=== PATIENT | male | born 1965 | race Two or more races ===

== ENCOUNTER 2020-08-10 18:46 | Emergency (ER) | payer SELFPAY ==
--- NOTE | 2020-08-10 19:23 | EDM.PDOC ---
ED HPI GENERAL MEDICAL PROBLEM - General Chief Complaint: General Stated Complaint: PAIN IN LUNGS WHEN TAKING DEEP BREATH Time Seen by Provider: 08/10/20 19:13 Source of Information: Reports: Patient History Limitations: Reports: No Limitations - History of Present Illness INITIAL COMMENTS - FREE TEXT/NARRATIVE: 55-year-old male of [place] descent presents to the ED for evaluation of upper back pain worsened by deep inspiration. Mild associated nonproductive cough. Headache. Low-grade fever. No chills. Appetite remains fair without any diarrhea. He has lost his sense of taste. Reports he was exposed to COVID- 19 in the workplace by a coworker over the last week. He has had a previous COVID-19 test 2 months ago which was negative. He states it hurts to take in a deep breath. No hemoptysis. Onset: Gradual Onset Date: 08/08/20 Duration: Day(s):, Getting Worse Location: Reports: Chest (Increased pain with deep inspiration right posterior thorax.), Generalized (Generalized fatigue weakness mild headache), Other (Loss of taste.). Denies: Abdomen, Back, Pelvis, Upper Extremity, Right, Lower Extremity, Left Quality: Reports: Ache, Other (Pleuritic type pain with sharp stabbing pain with deep inspiration right upper posterior chest) Severity: Moderate Improves with: Reports: Rest Worsens with: Reports: Other Context: Reports: Sick Contact. Denies: Activity, Exercise, Lifting, Trauma (Coworker tested positive for COVID-19 last week.), Other Associated Symptoms: Reports: Chest Pain, Cough, Fever/Chills, Headaches, Loss of Appetite, Malaise, Shortness of Breath, Weakness. 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) (.) Middle Posterior Back Pain Score (Numeric/FACES): 10 - Related Data Allergies Allergy/AdvReac Type Severity Reaction Status Date / Time dust Allergy Cough Uncoded 08/10/20 19:00 Home Meds: Home Meds Enalapril [Vasotec] 10 mg PO DAILY 08/10/20 [History] Hydrocodone/Acetaminophen [[place] 5-325 Tablet] 1 each PO Q4H #20 tablet 08/10/20 [Rx] Past Medical History Cardiovascular History: Reports: Hypertension Social & Family History - Tobacco Use Smoking Status *Q: Never Smoker - Caffeine Use Caffeine Use: Reports: Coffee - Recreational Drug Use Recreational Drug Use: No - Living Situation & Occupation Occupation: Employed ED ROS GENERAL - Review of Systems Review Of Systems: See Below Constitutional: Reports: Malaise, Weakness, Fatigue, Other (Also sense of taste.). Denies: Fever, Chills, Decreased Appetite, Weight Loss HEENT: Reports: No Symptoms Respiratory: Reports: Pleuritic Chest Pain (Every breath hurts right upper anterior back.), Cough Cardiovascular: Denies: Chest Pain, Blood Pressure Problem, Claudication, Dyspnea on Exertion, Edema, Lightheadedness, Orthopnea, Palpitations Endocrine: Reports: Fatigue GI/Abdominal: Reports: No Symptoms. Denies: Diarrhea, Nausea : Reports: No Symptoms Musculoskeletal: Reports: No Symptoms Skin: Reports: No Symptoms Neurological: Reports: No Symptoms Psychiatric: Reports: No Symptoms Hematologic/Lymphatic: Reports: No Symptoms Immunologic: Reports: No Symptoms ED EXAM, GENERAL - Physical Exam Exam: See Below General Appearance: Alert, WD/WN, No Apparent Distress, Other (Temp is heart rate was 77 and sinus. Respiratory is 19 with O2 sats of 97% room air.. BP 1 3384. 36.6) Eye Exam: Bilateral Eye: Normal Inspection, PERRL Ears: Normal TMs Throat/Mouth: Normal Inspection, Normal Lips, Normal Teeth, Normal Oropharynx, Other (Tongue is moist.) Head: Atraumatic, Normocephalic Neck: Normal Inspection, Supple, Non-Tender, Full Range of Motion. No: Carotid Bruit, Lymphadenopathy (L), Lymphadenopathy (R) Respiratory/Chest: No Respiratory Distress, Lungs Clear, Normal Breath Sounds, No Accessory Muscle Use Cardiovascular: Normal Peripheral Pulses, Regular Rate, Rhythm, No Edema, No Gallop, No Murmur, No Rub Peripheral Pulses: 3+: Carotid (L), Carotid (R), Posterior Tibial (L), Posterior Tibial (R), Dorsalis Pedis (L), Dorsalis Pedis (R) GI/Abdominal: Normal Bowel Sounds, Soft, Non-Tender, No Organomegaly, No Distention, No Mass, Pelvis Stable, Other (Previous scar from appendectomy.) Back Exam: Normal Inspection, Full Range of Motion, Paraspinal Tenderness (He has localized paraspinal tenderness over right rib head thoracic 7 or 8. This causes significant pain with palpation.). No: CVA Tenderness (L), CVA Tenderness (R) Extremities: Normal Inspection, Normal Range of Motion, Non-Tender, No Pedal Edema ( No other paraspinal muscle spasm appreciated.), Normal Capillary Refill Neurological: Alert, Oriented, CN II-XII Intact, Normal Cognition Psychiatric: Normal Affect, Normal Mood Skin Exam: Warm, Dry, Intact, Normal Color, No Rash Course - Vital Signs Last Recorded V/S: Last Vital Signs Temp 36.6 C 08/10/20 18:57 Pulse 77 08/10/20 18:57 Resp 19 08/10/20 18:57 BP 138/84 08/10/20 18:57 Pulse Ox 97 08/10/20 18:57 - Orders/Labs/Meds Orders: Active Orders 24 hr Category Date Time Status Chest 1V Frontal [CR] Stat Exams 08/10/20 19:28 Taken Labs: Laboratory Tests 08/10/20 Range/Units 20:00 SARS-CoV-2 RNA (ERINN) Negative (NEGATIVE) Meds: Medications Discontinued Medications Generic Name Dose Route Start Last Admin Trade Name Freq PRN Reason Stop Dose Admin Oxycodone/Acetaminophen 2 tab 08/10/20 21:17 Percocet 325-5 Mg PO 08/10/20 21:18 ONETIME ONE - Radiology Interpretation Free Text/Narrative:: 55-year-old male of [place] descent presents to the ED for evaluation of pain every time he takes in a deep breath right upper back. 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 He has associated mild fever, fatigue. No shortness of breath or sputum production. Appetite remains good. Loss of sense of taste. Exposed to COVID-19 illness in the workplace and week ago. Examination reveals pain well localized to his right upper back over rib head #7 or 8 with clinical subluxation of the rib head. Plan he will have a chest x- ray done in a COVID-19 screen. - Re-Assessments/Exams Free Text/Narrative Re-Assessment/Exam: 08/10/20 19:55 chest x-ray done portably is within normal limits. Normal cardiac silhouette. No lung infiltrates appreciated. 10/04/20 21:07 19 screen came back negative. Plan on going to place the patient on [place] 5/325 mg tabs 1 or 2 every 4-6 hours for both pain in his right upper back due to a rib head subluxation as well as to suppress his cough. Note will be given to excuse him from work tomorrow. He will try and seek chiropractic manipulation tomorrow. Departure - Departure Time of Disposition: 21:08 Disposition: Home, Self-Care 01 Condition: Fair Clinical Impression: Viral upper respiratory tract infection with cough Thoracic back pain Qualifiers: Chronicity: acute Back pain laterality: right Qualified Code(s): M54.6 - Pain in thoracic spine - Discharge Information *PRESCRIPTION DRUG MONITORING PROGRAM REVIEWED*: Not Applicable *COPY OF PRESCRIPTION DRUG MONITORING REPORT IN PATIENT SOPHIA: Not Applicable Prescriptions: Hydrocodone/Acetaminophen [[place] 5-325 Tablet] 1 each PO Q4H #20 tablet Instructions: Acute Back Pain, Adult Referrals: PCP,Not In Area [Primary Care Provider] - Forms: ED Department Discharge, ED Return to Work/School Form Additional Instructions: Evaluation in the emergency room tonight in regards to persistent pain right upper back worsened by certain movements and deep breathing. Aggravated by current cough. Exam reveals evidence of a viral upper respiratory tract infection. Concerns for COVID-19 illness appreciated especially since coworkers have been diagnosed with this illness. Chest x-ray was within normal limits showing no signs of pneumonia or abnormality within the ribs. Examination reveals marked tenderness over rib head #7 and 8 right upper back compound with a rib head subluxation. This will need to be repaired by a chiropractor. Suggest phoning `s office tomrrow am and arranging an appointment to have rib head put back in place. Use [place] tabs 5/325 mg 1 or 2 every 4-6 hours necessary for pain relief and relief of cough. Sepsis Event Note (ED) - Evaluation Sepsis Screening Result: No Definite Risk - Focused Exam Vital Signs: Vital Signs Temp Pulse Resp BP Pulse Ox 08/10/20 18:57 36.6 C 77 19 138/84 97 - My Orders Last 24 Hours: My Active Orders 08/10/20 19:28 Chest 1V Frontal [CR] Stat - Assessment/Plan Last 24 Hours: My Active Orders 08/10/20 19:28 Chest 1V Frontal [CR] Stat
[2020-08-10] MEDS ORDERED: Acetaminophen/oxyCODONE 325-5 MG Tab PO ONE (21:17)
--- NOTE | 2020-09-10 10:21 | CR ---
PROCEDURE INFORMATION: Exam: XR Chest, 1 View Exam date and time: 08/10/2020 7:27 PM Age: 55 years old Clinical indication: Shortness of breath TECHNIQUE: Imaging protocol: XR of the chest Views: 1 view. COMPARISON: No relevant prior studies available. FINDINGS: Lungs: No acute focal dense air space consolidation or lung parenchymal mass. Pleural space: No pneumothorax. No large right pleural effusion. No large left pleural effusion. Heart/Mediastinum: Unremarkable cardiac silhouette. No mediastinal mass. Vasculature: Aortic calcifications present with tortuosity. Bones/joints: No acute fracture or neoplastic osseous lesion. IMPRESSION: 1. No active cardiopulmonary disaese. 2. Remainder of findings described as above. Thank you for allowing us to participate in the care of your patient. Dictated and Authenticated by: Scott Jacob MD 09/09/2020 11:18 PM Central Time ([place] & [place]) [place]
== END 2020-08-10 21:50 | disposition home or self-care (01) ==
LOC: JD.ED 18:46
DX: S23.29XA Dislocation of other parts of thorax, initial encounter (principal); J06.9 Acute upper respiratory infection, unspecified; I10 Essential (primary) hypertension; Z91.09 Other allergy status, other than to drugs and biological substances; Z79.899 Other long term (current) drug therapy; Z20.828 Contact with and (suspected) exposure to other viral communicable diseases; X58.XXXA Exposure to other specified factors, initial encounter
CPT/HCPCS: 71045; 87635; 99283; A9270; U0002